=== PATIENT | female | born 1980 | race African-American/Black ===

== ENCOUNTER 2021-03-31 15:44 | Emergency (ER) | payer MEDICAID, OTHER ==
[~2021-03-31] VITALS: Ht 162.6 cm; Wt 113.4 kg
[2021-03-31 16:50] VITALS: BP 133/106
== END 2021-03-31 17:18 | disposition home or self-care (01) ==
LOC: ER 15:44
DX: S60.221A Contusion of right hand, initial encounter (principal); W23.0XXA Caught, crushed, jammed, or pinched between moving objects, initial encounter; Y93.H9 Activity, other involving exterior property and land maintenance, building and construction; Y92.89 Other specified places as the place of occurrence of the external cause; Y99.8 Other external cause status